=== PATIENT | male | born 1960 | race African-American/Black ===

== ENCOUNTER 2021-05-15 06:30 | Inpatient (IN) | payer SELFPAY ==
[2021-05-15] MEDS ORDERED: Acetaminophen 325 MG TAB PO PRN ×2 (08:31→08:32)
[2021-05-15] MEDS ORDERED: Morphine 4 MG/ML VIAL SLOW IVP PRN (08:32)
[2021-05-15] MEDS ORDERED: Insulin Regular 300 UNITS/3 ML VIAL SC PRN ×2 (08:45)
[2021-05-15] MEDS ORDERED: Dextrose 50% Abboject 50 ML SYRINGE IVP PRN (08:45)
[2021-05-15] MEDS ORDERED: Dextrose 5% in Water 1,000 ML IV PRN ×2 (08:45→10:38)
[2021-05-15] MEDS ORDERED: Piperacillin/Tazobactam 3.375 GM in Sodium Chloride 0.9% 100 ML IVPB SCH (09:00)
[2021-05-15] MEDS: Sodium Chloride 0.9% 1,000 ML IV SCH ×2 (09:36→18:27)
[2021-05-15 09:39] LABS: #Lymphocytes 1.6 thou/uL (1.20-3.40); #Neutrophils 11.3 thou/uL (1.40-6.50); %Eosinophils 0.2 % (0.0-10.0); %Lymphocytes 11.5 % (21.0-51.0); %Monocytes 7.5 % (0.0-10.0); %Neutrophils 80.8 % (42.0-75.0); Hemoglobin 9.7 g/dL (14.0-18.0); Mean Corpuscular HGB CONC 33.1 g/dL (32.0-36.0); Mean Corpuscular Hemoglobin 27.9 pg (27.0-31.0); Mean Corpuscular Volume 84.4 fL (78.0-98.0); Mean Platelet Volume 7.1 fL (7.4-10.4); Platelet Count 399 thou/uL (130-400); RBC Distribution Width 15.5 % (11.5-14.5); Red Blood Cell (RBC) Count 3.47 mill/uL (4.70-6.10)
[2021-05-15 09:46] LABS: Hemoglobin A1c 11.2 % (4.0-6.0)
[2021-05-15 09:59] LABS: Anion Gap 9 mmol/L (10-20); BUN (Urea Nitrogen) 6 mg/dL (8.4-25.7); Calc. Creatinine Clearance 0 mL/min (70-130); Calcium 8.7 mg/dL (7.8-10.44); Carbon Dioxide 31 mmol/L (22-29); Cardiac Risk 4.7 (Less than 4.5); Chloride 95 mmol/L (98-107); Cholesterol 127 mg/dl (< 200 Desired); Glucose 344 mg/dL (70-105); HDL Cholesterol 27 mg/dL (>60 Neg Risk); LDL Cholesterol, Calculated 84 mg/dL; Potassium 3.5 mmol/L (3.5-5.1); Sodium 131 mmol/L (136-145); Triglycerides 80 mg/dL (Less than 150)
[2021-05-15] MEDS ORDERED: Dextrose 50% Abboject 50 ML SYRINGE SLOW IVP PRN (10:38)
[2021-05-15 11:41] VITALS: BMI 23.1
[2021-05-15] MEDS ORDERED: VANCOMYCIN 2 GRAM/400 ML BAG 2 GM in Premix Bag 1 BAG IVPB SCH (12:00)
[2021-05-15] MEDS: Insulin Regular 300 UNITS/3 ML VIAL SC PRN (12:47)
[2021-05-15] MEDS: Pantoprazole 40 MG VIAL IVP SCH (13:11)
[2021-05-15 15:25] LABS: SARS-CoV-2 PCR by NAA Not Detected (NotDetected)
[2021-05-15 15:42] LABS: Bacteria/HPF None Seen HPF (None Seen); Bilirubin Negative (Negative); Blood, Urine Negative (Negative); Clarity Clear (Clear); Glucose, Urine (Dipstick) Greater than 1000 mg/dL (Negative); Ketone, Urine Negative (Negative); Leukocyte Negative Leu/uL (Negative); Nitrite Negative (Negative); Protein, Urine (Dipstick) 10 mg/dL (Neg-Trace); RBC/HPF 0-3 HPF (0-3); Specific Gravity, Urine 1.018 (1.002-1.036); Squamous Epithelial 0-3 HPF (0-3); Urobilinogen Normal mg/dL (Less than 2); WBC/HPF 0-3 HPF (0-3); pH, Urine 6.5 (5.0-9.0)
[2021-05-15 15:45] LABS: Urine Culture Reflex No No
[2021-05-15] MEDS: Piperacillin/Tazobactam 3.375 GM in Sodium Chloride 0.9% 100 ML IVPB SCH (16:41)
[2021-05-15] MEDS ORDERED: FLU VACC QS2021-22(6MOS UP)/PF 60 MCG/0.5 ML SYRINGE IM ONE (17:00)
[2021-05-15] MEDS: Lantus 1000 UNITS/10 ML VIAL SC SCH (21:06)
[2021-05-15] MEDS: Morphine 4 MG/ML VIAL SLOW IVP PRN (21:19)
[2021-05-15] MEDS: Acetaminophen 325 MG TAB PO PRN (21:24)
[2021-05-15] MEDS: Vancomycin 1.5 GRAM/300 ML BAG 1.5 GM in Premix Bag 1 BAG IVPB SCH (23:20)
[2021-05-16] MEDS: Piperacillin/Tazobactam 3.375 GM in Sodium Chloride 0.9% 100 ML IVPB SCH ×3 (02:16→18:04)
[2021-05-16] MEDS: Sodium Chloride 0.9% 1,000 ML IV SCH ×2 (06:11→15:51)
[2021-05-16 06:33] LABS: #Lymphocytes 1.5 thou/uL (1.20-3.40); #Monocytes 0.9 thou/uL (0.11-0.59); #Neutrophils 10.7 thou/uL (1.40-6.50); %Eosinophils 0.4 % (0.0-10.0); %Neutrophils 81.6 % (42.0-75.0); Mean Corpuscular HGB CONC 33.5 g/dL (32.0-36.0); Mean Corpuscular Hemoglobin 28.3 pg (27.0-31.0); Mean Corpuscular Volume 84.6 fL (78.0-98.0); Mean Platelet Volume 6.9 fL (7.4-10.4); Platelet Count 393 thou/uL (130-400); RBC Distribution Width 15.7 % (11.5-14.5); Red Blood Cell (RBC) Count 3.54 mill/uL (4.70-6.10); White Blood Cell (WBC) Count 13.1 thou/uL (4.8-10.8)
[2021-05-16 06:56] LABS: Anion Gap 8 mmol/L (10-20); BUN (Urea Nitrogen) 6 mg/dL (8.4-25.7); Calc. Creatinine Clearance 164 mL/min (70-130); Calcium 8.9 mg/dL (7.8-10.44); Carbon Dioxide 30 mmol/L (22-29); Cardiac Risk 5.2 (Less than 4.5); Chloride 99 mmol/L (98-107); Cholesterol 125 mg/dl (< 200 Desired); Glucose 175 mg/dL (70-105); HDL Cholesterol 24 mg/dL (>60 Neg Risk); LDL Cholesterol, Calculated 85 mg/dL; Potassium 3.3 mmol/L (3.5-5.1); Sodium 134 mmol/L (136-145); Triglycerides 80 mg/dL (Less than 150)
[2021-05-16] MEDS: Pantoprazole 40 MG VIAL IVP SCH (09:50)
[2021-05-16] MEDS: Lantus 1000 UNITS/10 ML VIAL SC SCH ×2 (10:00→21:25)
[2021-05-16] MEDS: Vancomycin 1.5 GRAM/300 ML BAG 1.5 GM in Premix Bag 1 BAG IVPB SCH (12:20)
[2021-05-16] MEDS ORDERED: Fentanyl 100 MCG/2 ML VIAL ONE ×4 (12:28→17:15)
[2021-05-16] MEDS ORDERED: Bupivacaine HCl 0.5%/Epinephrine 1:200,000/PF 30 ml Vial ONE (12:30)
[2021-05-16] MEDS ORDERED: Phenylephrine 10 MG/ML VIAL ONE (13:09)
[2021-05-16] MEDS ORDERED: Propofol 500 MG/50 ML VIAL ONE (13:11)
[2021-05-16] MEDS ORDERED: PROPOFOL 200 MG/20 ML VIAL ONE (13:33)
[2021-05-16] MEDS ORDERED: Promethazine HCl 25 MG/ML VIAL IM PRN (16:23)
[2021-05-16] MEDS ORDERED: Ondansetron HCl/PF 4 MG/2 ML Vial IVP PRN (16:23)
[2021-05-16] MEDS ORDERED: Promethazine HCl 25 MG/ML VIAL IVPB PRN (16:23)
[2021-05-16] MEDS ORDERED: HYDROcodone/Acetaminophen 7.5/325 mg Tablet PO PRN (17:41)
[2021-05-16] MEDS: Morphine 4 MG/ML VIAL SLOW IVP PRN (17:59)
[2021-05-16] MEDS: HYDROcodone/Acetaminophen 7.5/325 mg Tablet PO PRN (21:23)
[2021-05-16 23:26] LABS: Vancomycin, Trough 10.4 ug/mL
[2021-05-17] MEDS: Vancomycin 1.5 GRAM/300 ML BAG 1.5 GM in Premix Bag 1 BAG IVPB SCH ×3 (01:08→23:23)
[2021-05-17] MEDS: HYDROcodone/Acetaminophen 7.5/325 mg Tablet PO PRN ×4 (01:22→23:23)
[2021-05-17] MEDS: Sodium Chloride 0.9% 1,000 ML IV SCH ×3 (03:05→21:59)
[2021-05-17] MEDS: Piperacillin/Tazobactam 3.375 GM in Sodium Chloride 0.9% 100 ML IVPB SCH ×3 (03:05→16:25)
[2021-05-17 04:51] LABS: #Eosinphils 0.1 thou/uL (0.0-0.7); #Lymphocytes 1.5 thou/uL (1.20-3.40); #Monocytes 0.7 thou/uL (0.11-0.59); #Neutrophils 8.3 thou/uL (1.40-6.50); %Basophils 0.2 % (0.0-1.0); %Eosinophils 0.5 % (0.0-10.0); %Lymphocytes 13.9 % (21.0-51.0); %Monocytes 6.6 % (0.0-10.0); %Neutrophils 78.8 % (42.0-75.0); Hemoglobin 8.4 g/dL (14.0-18.0); Mean Corpuscular HGB CONC 32.8 g/dL (32.0-36.0); Mean Corpuscular Hemoglobin 27.8 pg (27.0-31.0); Mean Corpuscular Volume 84.6 fL (78.0-98.0); Mean Platelet Volume 6.7 fL (7.4-10.4); Platelet Count 349 thou/uL (130-400); RBC Distribution Width 15.4 % (11.5-14.5); White Blood Cell (WBC) Count 10.5 thou/uL (4.8-10.8)
[2021-05-17 05:09] LABS: Anion Gap 6 mmol/L (10-20); BUN (Urea Nitrogen) 5 mg/dL (8.4-25.7); Calc. Creatinine Clearance 164 mL/min (70-130); Calcium 8.4 mg/dL (7.8-10.44); Carbon Dioxide 31 mmol/L (22-29); Chloride 98 mmol/L (98-107); Glucose 169 mg/dL (70-105); Potassium 3.4 mmol/L (3.5-5.1); Sodium 132 mmol/L (136-145)
[2021-05-17] MEDS: Potassium Chloride 20 MEQ TAB PO SCH (08:37)
[2021-05-17] MEDS: Lantus 1000 UNITS/10 ML VIAL SC SCH ×2 (08:37→21:07)
[2021-05-17] MEDS: Pantoprazole 40 MG VIAL IVP SCH (10:45)
[2021-05-17] MEDS: Insulin Regular 300 UNITS/3 ML VIAL SC PRN (11:15)
[2021-05-17] MEDS: Acetaminophen 325 MG TAB PO PRN (16:19)
[2021-05-18] MEDS: Piperacillin/Tazobactam 3.375 GM in Sodium Chloride 0.9% 100 ML IVPB SCH ×3 (01:40→16:28)
[2021-05-18] MEDS: Sodium Chloride 0.9% 1,000 ML IV SCH ×2 (05:16→18:38)
[2021-05-18 08:36] LABS: Anion Gap 9 mmol/L (10-20); BUN (Urea Nitrogen) 4 mg/dL (8.4-25.7); Calc. Creatinine Clearance 173 mL/min (70-130); Calcium 8.7 mg/dL (7.8-10.44); Carbon Dioxide 31 mmol/L (22-29); Chloride 99 mmol/L (98-107); Glucose 93 mg/dL (70-105); Potassium 3.3 mmol/L (3.5-5.1); Sodium 136 mmol/L (136-145)
[2021-05-18] MEDS: Potassium Chloride 20 MEQ TAB PO SCH (09:31)
[2021-05-18] MEDS: HYDROcodone/Acetaminophen 7.5/325 mg Tablet PO PRN ×3 (09:31→22:14)
[2021-05-18] MEDS: Lantus 1000 UNITS/10 ML VIAL SC SCH ×2 (09:32→22:09)
[2021-05-18] MEDS: Pantoprazole 40 MG VIAL IVP SCH (09:32)
[2021-05-18] MEDS: Vancomycin 1.5 GRAM/300 ML BAG 1.5 GM in Premix Bag 1 BAG IVPB SCH (12:18)
[2021-05-19] MEDS: Vancomycin 1.5 GRAM/300 ML BAG 1.5 GM in Premix Bag 1 BAG IVPB SCH (00:11)
[2021-05-19] MEDS: Piperacillin/Tazobactam 3.375 GM in Sodium Chloride 0.9% 100 ML IVPB SCH ×2 (01:46→08:41)
[2021-05-19 04:38] LABS: Hemoglobin 7.6 g/dL (14.0-18.0)
[2021-05-19 04:58] LABS: Anion Gap 7 mmol/L (10-20); BUN (Urea Nitrogen) 6 mg/dL (8.4-25.7); Calc. Creatinine Clearance 173 mL/min (70-130); Calcium 8.4 mg/dL (7.8-10.44); Carbon Dioxide 30 mmol/L (22-29); Chloride 99 mmol/L (98-107); Glucose 213 mg/dL (70-105); Sodium 132 mmol/L (136-145)
[2021-05-19] MEDS: HYDROcodone/Acetaminophen 7.5/325 mg Tablet PO PRN ×3 (05:54→21:45)
[2021-05-19] MEDS: Insulin Regular 300 UNITS/3 ML VIAL SC PRN ×2 (06:24→21:45)
[2021-05-19] MEDS: Lantus 1000 UNITS/10 ML VIAL SC SCH ×2 (08:40→20:19)
[2021-05-19] MEDS: Potassium Chloride 20 MEQ TAB PO SCH (08:40)
[2021-05-19] MEDS: Pantoprazole 40 MG VIAL IVP SCH (08:41)
[2021-05-19 11:08] LABS: Vancomycin, Trough 12.3 ug/mL
[2021-05-19] MEDS: Acetaminophen 325 MG TAB PO PRN (20:22)
[2021-05-20 06:21] LABS: Hemoglobin 8.1 g/dL (14.0-18.0); Mean Corpuscular Hemoglobin 27.3 pg (27.0-31.0); Mean Corpuscular Volume 85.2 fL (78.0-98.0); Mean Platelet Volume 6.2 fL (7.4-10.4); Platelet Count 544 thou/uL (130-400); RBC Distribution Width 15.8 % (11.5-14.5); Red Blood Cell (RBC) Count 2.96 mill/uL (4.70-6.10); White Blood Cell (WBC) Count 7.5 thou/uL (4.8-10.8)
[2021-05-20 06:44] LABS: ALT (SGPT) 27 U/L (8-55); AST (SGOT) 40 U/L (5-34); Albumin 2.3 g/dL (3.5-5.0); Alkaline Phosphatase 71 U/L (40-110); Anion Gap 6 mmol/L (10-20); BUN (Urea Nitrogen) 6 mg/dL (8.4-25.7); Bilirubin, Total 0.2 mg/dL (0.2-1.2); Calc. Creatinine Clearance 191 mL/min (70-130); Calcium 8.8 mg/dL (7.8-10.44); Carbon Dioxide 31 mmol/L (22-29); Chloride 100 mmol/L (98-107); Globulin 3.8 g/dL (2.4-3.5); Glucose 84 mg/dL (70-105); Potassium 3.9 mmol/L (3.5-5.1); Protein, Total 6.1 g/dL (6.0-8.3); Sodium 133 mmol/L (136-145)
[2021-05-20 07:07] LABS: Thyroid Stimulating Hormone 1.1967 uIU/mL (0.35-4.94)
[2021-05-20] MEDS: HYDROcodone/Acetaminophen 7.5/325 mg Tablet PO PRN ×2 (09:04→17:03)
[2021-05-20] MEDS: Lantus 1000 UNITS/10 ML VIAL SC SCH ×2 (09:07→20:17)
[2021-05-20] MEDS: Pantoprazole 40 MG VIAL IVP SCH (09:08)
[2021-05-20] MEDS ORDERED: Folic Acid 1 MG TAB PO SCH (16:30)
[2021-05-20] MEDS ORDERED: Gabapentin 100 MG CAP PO SCH (17:45)
[2021-05-20] MEDS: Gabapentin 100 MG CAP PO SCH (20:16)
[2021-05-20] MEDS: Insulin Regular 300 UNITS/3 ML VIAL SC PRN (21:58)
[2021-05-21] MEDS: Insulin Regular 300 UNITS/3 ML VIAL SC PRN ×3 (05:51→18:47)
[2021-05-21] MEDS: HYDROcodone/Acetaminophen 7.5/325 mg Tablet PO PRN ×3 (05:51→18:51)
[2021-05-21] MEDS: Folic Acid 1 MG TAB PO SCH (09:11)
[2021-05-21] MEDS: Gabapentin 100 MG CAP PO SCH ×3 (09:11→19:46)
[2021-05-21] MEDS: Pantoprazole 40 MG VIAL IVP SCH (09:13)
[2021-05-21] MEDS: Lantus 1000 UNITS/10 ML VIAL SC SCH ×2 (10:39→19:47)
[2021-05-22] MEDS: HYDROcodone/Acetaminophen 7.5/325 mg Tablet PO PRN ×2 (07:05→20:14)
[2021-05-22] MEDS: Gabapentin 100 MG CAP PO SCH ×3 (09:43→20:12)
[2021-05-22] MEDS: Lantus 1000 UNITS/10 ML VIAL SC SCH ×2 (09:44→22:11)
[2021-05-22] MEDS: Folic Acid 1 MG TAB PO SCH (09:46)
[2021-05-22] MEDS: Pantoprazole 40 MG VIAL IVP SCH (09:52)
[2021-05-22] MEDS: Morphine 4 MG/ML VIAL SLOW IVP PRN (22:13)
[2021-05-23] MEDS: Lantus 1000 UNITS/10 ML VIAL SC SCH (08:46)
[2021-05-23] MEDS: Gabapentin 100 MG CAP PO SCH (08:47)
[2021-05-23] MEDS: Folic Acid 1 MG TAB PO SCH (08:47)
[2021-05-23 13:21] VITALS: BP 139/69; TEMP 98.2
== END 2021-05-23 14:16 | disposition home or self-care (01) | DRG 854 ==
LOC: T4-A 06:30 → SJJU 05-16 17:47
PROVIDERS: ADMIT Surgery; ATTEND Surgery
PROC: 0Y6D0Z3 Detachment at Left Upper Leg, Low, Open Approach (ICD-10-PCS; principal; 2021-05-16)
PROC: 0Y6C0Z3 Detachment at Right Upper Leg, Low, Open Approach (ICD-10-PCS; 2021-05-16)
DX: A41.9 Sepsis, unspecified organism (principal); M86.172 Other acute osteomyelitis, left ankle and foot; M86.171 Other acute osteomyelitis, right ankle and foot; E87.1 Hypo-osmolality and hyponatremia; Z20.822 Contact with and (suspected) exposure to COVID-19; I10 Essential (primary) hypertension; E11.65 Type 2 diabetes mellitus with hyperglycemia; F17.210 Nicotine dependence, cigarettes, uncomplicated; E11.51 Type 2 diabetes mellitus with diabetic peripheral angiopathy without gangrene; E11.69 Type 2 diabetes mellitus with other specified complication; D64.9 Anemia, unspecified; E11.628 Type 2 diabetes mellitus with other skin complications; F15.10 Other stimulant abuse, uncomplicated; E87.6 Hypokalemia; Z79.899 Other long term (current) drug therapy; Z79.84 Long term (current) use of oral hypoglycemic drugs
CPT/HCPCS: 36415; 36416; 80048; 80053; 80061; 80202; 81001; 82607; 82746; 83036; 84443; 85014; 85018; 85025; 85027; 86140; 86850; 86900; 86901; 87040; 88307; 88311; C9113; J1815; J2270; J2370; J2543; J2704; J3010; J3370; J3490; J7050; U0003; U0005